=== PATIENT | male | born 1995 | race Caucasian/White ===

== ENCOUNTER 2023-12-15 22:56 | Emergency (ER) | payer SELFPAY ==
[~2023-12-15] VITALS: Ht 172.7 cm; Wt 63.6 kg
[2023-12-15 23:05] VITALS: TEMP 98.2
[2023-12-15] MEDS ORDERED: fentaNYL 50 MCG/ML 2 ML VIAL IV ONE (23:30)
[2023-12-16] MEDS ORDERED: fentaNYL 50 MCG/ML 2 ML VIAL IV ONE (00:30)
[2023-12-16] MEDS ORDERED: Bacitracin Topical Oint 30 GM TUBE TOP ONE (01:15)
[2023-12-16] MEDS ORDERED: Home HYDROcodone/Acetaminophen 5/325 MG #4 TABS/PACK PO ONE (01:45)
[2023-12-16 01:53] VITALS: BP 116/81; PULSE 89
== END 2023-12-16 01:53 | disposition home or self-care (01) ==
LOC: COL.ER 22:56
DX: T24.211A Burn of second degree of right thigh, initial encounter (principal); T24.201A Burn of second degree of unspecified site of right lower limb, except ankle and foot, initial encounter; T24.212A Burn of second degree of left thigh, initial encounter; T20.26XA Burn of second degree of forehead and cheek, initial encounter; T20.24XA Burn of second degree of nose (septum), initial encounter; T23.231A Burn of second degree of multiple right fingers (nail), not including thumb, initial encounter; T31.0 Burns involving less than 10% of body surface; F17.290 Nicotine dependence, other tobacco product, uncomplicated; X08.8XXA Exposure to other specified smoke, fire and flames, initial encounter
CPT/HCPCS: J3010